=== PATIENT | male | born 1955 | race African-American/Black ===

== ENCOUNTER 2016-12-02 11:56 | Inpatient (IN) | payer BC, MEDICAID, OTHER ==
[~2016-12-02] VITALS: Ht 188 cm; Wt 72.6 kg
[2016-12-02 12:00] VITALS: BP 112/75
[2016-12-02 12:27] LABS: BASOPHILS % 0.4 % (0.0-2.0); EOSINOPHILS % 0.6 % (0.0-5.0); HEMATOCRIT. 39.7 % (42.0-52.0); HEMOGLOBIN. 13.6 g/dL (14.0-18.0); LYMPHOCYTES % 15.6 % (20.0-50.0); MEAN CORPUSCULAR HEMOGLOBIN 29.5 pg (28.0-32.0); MEAN CORPUSCULAR VOLUME 86.1 fL (80.0-94.0); MEAN PLATELET VOLUME 8.6 fl (7.4-10.4); MONOCYTES % 10.3 % (2.0-8.0); NEUTROPHILS % 73.1 % (40.0-76.0); PLATELET 171 x1000/uL (130-400); RED BLOOD CELL COUNT 4.62 mill/uL (4.7-6.1); RED CELL DISTRIBUTION WIDTH 15.5 % (11.6-14.6)
[2016-12-02 12:34] LABS: INR 1.1
[2016-12-02 12:36] LABS: CARBON DIOXIDE 30 mEq/L (21-32); CHLORIDE 105 mEq/L (98-107)
[2016-12-02 12:44] LABS: TROPONIN I 0.03 ng/mL (0.00-0.04)
[2016-12-02] MEDS ORDERED: ASPIRIN 81MG EC TABLET PO ONE (13:45)
[2016-12-02 14:50] VITALS: BP 112/75
[2016-12-02] MEDS ORDERED: KETOROLAC 30MG/ML VIAL IV PRN (15:00)
[2016-12-02] MEDS ORDERED: IPRATROPIUM/ALBUTEROL 0.5-3(2.5)MG/3ML NEB INH PRN (15:00)
[2016-12-02] MEDS ORDERED: DOCUSATE SODIUM 100MG CAPSULE PO PRN (15:00)
[2016-12-02] MEDS ORDERED: ACETAMINOPHEN 325MG TABLET PO PRN (15:00)
[2016-12-02] MEDS ORDERED: GUAIFENESIN 200MG/10ML SUGAR FREE UDC PO PRN (15:00)
[2016-12-02] MEDS ORDERED: CLONIDINE 0.1MG TABLET PO PRN (15:00)
[2016-12-02] MEDS ORDERED: ZOLPIDEM TARTRATE 5MG TABLET PO PRN (15:00)
[2016-12-02] MEDS ORDERED: DIPHENHYDRAMINE 50MG/ML VIAL IV PRN (15:00)
[2016-12-02] MEDS ORDERED: ONDANSETRON HCL 4MG/2ML VIAL IV PRN (15:00)
[2016-12-02] MEDS ORDERED: LORAZEPAM 2MG/ML CPJ IV PRN (15:00)
[2016-12-02] MEDS ORDERED: NITROGLYCERIN 0.4MG TABLET SL SL PRN (15:00)
[2016-12-02] MEDS ORDERED: NA PHOS,M-B/NA PHOS,DI-BA ENEMA 118ML PR PRN (15:00)
[2016-12-02] MEDS ORDERED: MAGNESIUM/ALUMINUM HYDROXIDE/SIMETHICONE 30ML UDC PO PRN (15:00)
[2016-12-02] MEDS ORDERED: GABA-529 PO (15:31)
[2016-12-02] MEDS ORDERED: CARV6.2548 PO (15:31)
[2016-12-02] MEDS ORDERED: ATOR-2 PO (15:31)
[2016-12-02] MEDS ORDERED: ASPI-1160 PO (15:31)
[2016-12-02] MEDS ORDERED: LISI10TA5 PO (15:32)
[2016-12-02 16:00] VITALS: BP 125/85
[2016-12-02] MEDS: ENOXAPARIN 40MG/0.4ML SYR SUBCUT SCH (16:11)
[2016-12-02] MEDS ORDERED: PNEUMOCOCCAL 23-VAL P-SAC VAC 0.5 ML IM ONE (17:00)
[2016-12-02 20:00] VITALS: BP 110/83
[2016-12-02] MEDS: LISINOPRIL 20MG TABLET PO SCH (21:00)
[2016-12-03] VITALS: BP 116/83
[2016-12-03 01:27] LABS: CREATINE KINASE 81 IU/L (39-308); CREATINE KINASE MB FRACTION 1.3 ng/mL (0.5-3.6); TROPONIN I < 0.02 ng/mL (0.00-0.04)
[2016-12-03 04:00] VITALS: BP 118/76
[2016-12-03 07:52] LABS: CREATINE KINASE MB FRACTION 1.4 ng/mL (0.5-3.6); TROPONIN I 0.02 ng/mL (0.00-0.04)
[2016-12-03 08:00] VITALS: BP 92/61
[2016-12-03] MEDS: LISINOPRIL 20MG TABLET PO SCH (08:57)
[2016-12-03] MEDS ORDERED: ASPIRIN 325MG EC TABLET PO SCH (09:00)
[2016-12-03 12:00] VITALS: BP 122/66
[2016-12-03] MEDS: ENOXAPARIN 40MG/0.4ML SYR SUBCUT SCH (15:00)
[2016-12-03 15:50] VITALS: BP 122/66
[2016-12-03 16:00] VITALS: BP 136/83
== END 2016-12-03 16:50 | disposition home or self-care (01) | DRG 203 ==
LOC: ER 11:59 → 7WST 13:02 → EDBEDREQ 13:09 → ENRESERV 13:18
PROVIDERS: ADMIT Internal Medicine; ATTEND Internal Medicine
DX: R07.89 Other chest pain (principal); E44.1 Mild protein-calorie malnutrition; I10 Essential (primary) hypertension; D64.9 Anemia, unspecified; Z86.73 Personal history of transient ischemic attack (TIA), and cerebral infarction without residual deficits; Z79.82 Long term (current) use of aspirin; Z79.899 Other long term (current) drug therapy; Z68.20 Body mass index [BMI] 20.0-20.9, adult
CPT/HCPCS: 36415; 71010; 80053; 80061; 82550; 82553; 83036; 83880; 84484; 85025; 85610; 90732; 93005; 93970; 99285; J1650; J1885